=== PATIENT | female | born 1985 | race Caucasian/White ===

== ENCOUNTER 2016-10-06 06:27 | Inpatient (IN) | payer MEDICAID ==
[2016-10-06] MEDS ORDERED: IOPAMIDOL 300 (61%) 150 ML VIAL IV ONE (06:28)
[2016-10-06] MEDS ORDERED: LACTATED RINGERS 2,000 ML ONE ×2 (06:59→10:42)
[2016-10-06] MEDS ORDERED: HALOPERIDOL LACTATE 5 MG/1 ML AMP ONE (06:59)
[2016-10-06] MEDS ORDERED: DIAZEPAM 5 MG/ML SYRINGE 2 ML ONE ×5 (07:18→10:42)
[2016-10-06 07:22] LABS: BASO % 0.2 % (0.2-1.0); HEMATOCRIT 50.1 % (37.0-47.0); HEMOGLOBIN 15.9 gm/l (12.0-16.0); IMM NEUT # 0.1 K/mm3 (0-0.2); IMM NEUT% 0.8 % (0-1); LYMPH # 0.3 (1.0-4.8); LYMPH % 1.8 % (15-45); MEAN CELL VOLUME 109.9 fl (81.0-99.0); MEAN CORPUSCULAR HEMOGLOBIN 34.9 pg (27.0-31.0); MEAN CORPUSCULAR HGB CONC 31.7 g/dl (33.0-37.0); MEAN PLATELET VOLUME 9.8 fl (7.4-10.4); MONO # 0.7 (0.0-0.8); MONO % 3.9 % (4-12); NEUT % 93.3 % (43-75); PLATELET COUNT 242 K/mm3 (130-400); RED CELL DISTRIBUTION WIDTH 12.5 % (11.5-14.5)
[2016-10-06] MEDS ORDERED: MAGNESIUM SULFATE 1 G/100 ML 200 ML IV ONE (08:10)
[2016-10-06] MEDS ORDERED: THIAMINE HCL 100 MG/ML 2ML VIAL ONE (08:10)
[2016-10-06 08:13] LABS: BAND 4 % (0-10); BASOPHIL 0 % (0-1); EOSINOPHIL 0 % (1-3); LYMPHOCYTE 4 % (15-45); MONOCYTE 3 % (4-12); NEUTROPHILS 89 % (43-75); PLATELET ESTIMATE NORMAL (NORMAL); ROULEAU 1+; TOTAL CELLS COUNTED 100
[2016-10-06 08:20] LABS: ALB/GLOB RATIO 1.6 (>1.0); ALBUMIN 4.8 gm/dL (3.5-5.7); CALCIUM 8.5 mg/dL (8.6-10.3)
[2016-10-06 08:32] LABS: URINE BILIRUBIN NEGATIVE (NEGATIVE); URINE BLOOD 2+ (NEGATIVE); URINE GLUCOSE (UA) NEGATIVE (NEGATIVE); URINE LEUKOCYTE ESTERASE NEGATIVE (NEGATIVE); URINE NITRITE NEGATIVE (NEGATIVE); URINE PROTEIN 2+ (NEGATIVE); URINE UROBILINOGEN NORMAL (0-1 mg/dl)
[2016-10-06 08:33] LABS: URINE APPEARANCE CLEAR; URINE COLOR YELLOW
[2016-10-06 08:56] LABS: URINE AMORPHOUS SEDIMENT FEW; URINE BACTERIA RARE; URINE EPITHELIAL CELLS 0-2 /hpf; URINE WBC NEG /hpf
[2016-10-06 09:12] LABS: ARTERIAL BLOOD GAS HCO3 5.8 mmol/L (22.0-28.0); ARTERIAL BLOOD GAS PCO2 17.5 mmHg (35.0-45.0); ARTERIAL BLOOD GAS PO2 87.8 mmHg (80.0-90.0); ARTERIAL BLOOD GAS pH 7.139 (7.350-7.450)
--- NOTE | 2016-10-06 09:43 | CT ---
EXAMINATION: Contrast enhanced CT scan of the abdomen and pelvis. CLINICAL INDICATION: Abdominal pain, vomiting, elevated white count. COMPARISON: None TECHNIQUE: Oral contrast: None Following uneventful administration of 125 mL of Isovue 300, intravenously axial images were acquired from just above the domes of the diaphragm to the iliac crest. A CT scan of the pelvis was also obtained from the iliac crest to the initial tuberosities. Stacked axial, sagittal, and coronal images were reviewed. Findings: Abdomen CT: (Contrast-enhanced): The lung bases are clear and are without mass or pleural effusion. Liver exhibits diminished attenuation throughout. No focal lesion is identified. The gallbladder is within normal limits. There is no evidence of biliary obstruction. The spleen size and attenuation are within normal limits. The pancreas is normal in size and contours. No inflammatory stranding is identified. The pancreatic duct is unremarkable. The adrenals are unremarkable. The kidneys are without mass or hydronephrosis. No nephrolithiasis is identified. The abdominal aorta unremarkable. There is no retroperitoneal adenopathy identified. The stomach is unremarkable. The visualized segments of small and large bowel are within normal limits. The osseous structures exhibit no displaced fracture. No lytic or blastic lesions are identified. Pelvic CT: (Contrast -enhanced): The distal ureters and bladder are unremarkable. The uterus is unremarkable. There is a 1.6 cm right adnexal cyst. No adenopathy is identified. The distal abdominal aorta and iliac vessels are within normal limits. The visualized segments of small and large bowel are unremarkable. The appendix is unremarkable. No displaced fractures are identified. There are no gross osteolytic or blastic lesions. The overlying soft tissues are unremarkable. IMPRESSION: 1. No acute inflammatory or obstructive process is identified currently. 2. Fatty infiltration liver. 3. 1.6 cm right ovarian cyst. The findings were uploaded to the electronic medical record for review at approximately 9:44 AM 10/06/2016
[2016-10-06] MEDS ORDERED: ALBUTEROL SULFATE 5MG/ML INHALANT 20 ML BOT ONE (09:59)
[2016-10-06] MEDS ORDERED: FUROSEMIDE 40 MG/4 ML VIAL ONE (10:12)
[2016-10-06] MEDS ORDERED: DEXTROSE 50%-WATER 25 G ONE (10:12)
[2016-10-06] MEDS ORDERED: INSULIN REGULAR HUMAN (DOSE) 100 UNITS/1 ML ONE ×2 (10:12→10:14)
[2016-10-06] MEDS ORDERED: CALCIUM GLUCONATE 1,000 MG/10 ML VIAL ONE (10:17)
[2016-10-06] MEDS ORDERED: SODIUM CHLORIDE 0.9% 50 ML IV ONE (10:19)
--- NOTE | 2016-10-06 10:30 | RAD ---
EXAMINATION : CHEST-AP BEDSIDE HISTORY: Epigastric pain COMPARISONS: None FINDINGS: The cardiomediastinal silhouette is within normal limits. Lungs are clear. No gross effusion is identified. The osseous structures are within normal limits. IMPRESSION: Negative single view chest.
[2016-10-06 10:44] LABS: ACETONE,SERUM 2+ (NEGATIVE)
[2016-10-06 10:45] LABS: ACETAMINOPHEN < 10 ug/ml; SALICYLATE < 5 mg/dl (0-30)
[2016-10-06 10:49] LABS: AMPHETAMINES/METHAMPHETAMINES NEGATIVE (NEGATIVE); COCAINE NEGATIVE (NEGATIVE); MARIJUANA POSITIVE (NEGATIVE); METHADONE NEGATIVE (NEGATIVE); OPIATES NEGATIVE (NEGATIVE); TRICYCLIC ANTIDEPRESSANTS NEGATIVE (NEGATIVE)
--- NOTE | 2016-10-06 11:12 | US ---
EXAMINATION: Limited gallbladder ultrasound examination was performed. CLINICAL INDICATION: Right upper quadrant pain. COMPARISON: None FINDINGS: Gallbladder: 7.2 x 2.1 cm in size. Cholelithiasis:None Gallbladder wall thickness: 2 millimeters. Pericholecystic fluid: Absent Common bile duct: Not dilated and measures 3 millimeters. Sonographic Jurado's sign: None elicited IMPRESSION: Normal gallbladder ultrasound. The findings were uploaded to the electronic medical record for review at approximately 11:12 AM 10/06/2016
[2016-10-06 11:18] LABS: CREATININE,RANDOM URINE 51 mg/dL
[2016-10-06] MEDS ORDERED: MAGNESIUM HYDROXIDE 30 ML UDCUP PO PRN (11:26)
[2016-10-06] MEDS ORDERED: SODIUM CHLORIDE 0.9% 100 ML IV PRN (11:26)
[2016-10-06] MEDS ORDERED: MENTHOL/CETYLPYRD 1 EACH LOZENGE PO PRN (11:26)
[2016-10-06] MEDS ORDERED: BISACODYL 10 MG SUP PR PRN (11:26)
[2016-10-06] MEDS ORDERED: BLISTEX LIPSTICK 1 EACH TP PRN (11:26)
[2016-10-06] MEDS ORDERED: BISACODYL 5 MG TABLET.EC PO PRN (11:26)
[2016-10-06] MEDS ORDERED: MULTIVITAMINS 10 ML, FOLIC ACID 2 MG, MAGNESIUM SULFATE 1 G/2 ML 2 G, THIAMINE HCL 100 ... IV ONE ×5 (11:30)
[2016-10-06] MEDS ORDERED: SODIUM POLYSTYRENE SULFONATE 15 G/60 ML BOT PO SCH (11:45)
[2016-10-06] MEDS ORDERED: D5NS 1,000 ML IV SCH (12:02)
[2016-10-06] MEDS: LORAZEPAM 2 MG/ML 1ML SDV IV PRN (12:05)
[2016-10-06] MEDS ORDERED: INSULIN REGULAR HUMAN (DOSE) 100 UNITS in SODIUM CHLORIDE 0.9% 99 ML IV PRN (12:07)
[2016-10-06 12:08] VITALS: BMI 24.6
[2016-10-06] MEDS ORDERED: PUMP TUBING ONE ×3 (12:10→12:42)
[2016-10-06 12:45] LABS: VENOUS BLOOD GAS BASE EXCESS -17.6 mmol/L (-2.0-2.0); VENOUS BLOOD GAS HCO3 8.2 mmol/L (22.0-27.0)
[2016-10-06] MEDS: PANTOPRAZOLE 40 MG TABLET DR PO SCH (12:50)
[2016-10-06 13:05] LABS: CALCIUM 8.5 mg/dL (8.6-10.3)
[2016-10-06 13:19] LABS: INR 0.9; PROTHROMBIN TIME 9.5 SECONDS (9.3-11.4)
--- NOTE | 2016-10-06 15:40 | HP ---
KOBE KRAUSE : 1985 DATE OF ADMISSION: October 06, 2016 CHIEF COMPLAINT: Feeling poorly. HISTORY OF PRESENT ILLNESS: Patient is a 31-year-old female with a past medical history of alcohol abuse, pancreatitis and gastritis. Approximately four days ago she developed abdominal pain and nausea and loss of appetite. She did not feel like eating or drinking. She has not eaten or drank in the last four days. On last week, she drank her usual amount of alcohol and then has not had any alcohol since then. It is difficult to know if the cessation of alcohol and then she developed the abdominal pain or if the abdominal pain developed and then she stopped drinking. She says she drinks about a pint of liquor a day. She has had withdrawals but no seizures. Last night and this morning, her abdominal pain worsened and she started vomiting. It was greenish fluid stuff, no food, no blood. She went originally to the emergency room in [place], but the wait was too long, and then she presented to our facility. She has had a little bit of diarrhea with this and then she says there has been some blood in the diarrhea and some blood in her urine. There has been no fever. She has not had any sick contacts. There have been no new foods or other foods that she ingested. No one else has been sick around her. In the emergency department, she was found to have a potassium of 6.8 and a sodium 127, an anion gap of 29 and a carbon dioxide of 5 with a pH of 7.139. She was provided with insulin, D5 and albuterol and calcium carbonate to try to stabilize this hyperkalemia. She subsequently was very tremulous in the emergency room, presumed to be in acute alcohol withdrawals and was treated accordingly. Overall in the emergency department, she has received approximately 70 mg of diazepam, 60 mg of Lasix, 4 liters of lactated Ringers solution, magnesium sulfate, thiamine, and magnesium and calcium to try to stabilize her condition. She is being admitted to the hospital for ongoing management of her metabolic acidosis and hyperkalemia. Patient denied any other ingestions like antifreeze, isopropyl alcohol or mouthwash. She denies any other drug use except for marijuana. Denies methamphetamine, cocaine or heroin. REVIEW OF SYSTEMS: GENERAL: No fevers, some chills. HEENT: No throat pain or ear pain. CARDIOVASCULAR: No chest pain or pressure. RESPIRATORY: She now has shortness of breath but no prior difficulty in breathing or cough. ABDOMEN: She has epigastric abdominal pain, vomiting, nausea, and decreased appetite for four days. Some diarrhea. GENITOURINARY: Blood in the urine but no burning or urgency with urination. MUSCULOSKELETAL: No muscle aches or pains. NEUROLOGIC: Tremulous. No lightheadedness or dizziness. No history of alcohol withdrawal seizures. PSYCHIATRIC: Alcohol abuse dependence and now detox. PAST MEDICAL HISTORY: Includes: 1. Gastritis. 2. Pancreatitis. 3. Seborrheic dermatosis. PAST SURGICAL HISTORY: Appendectomy. ALLERGIES: CODEINE. IT MAKES HER VIOLENTLY ILL WITH VOMITING. MEDICATIONS: Include: 1. Promethazine. 2. Protonix. FAMILY MEDICAL HISTORY: Unknown at this time. SOCIAL HISTORY: She lives with a significant other and has several roommates. She does work in a cafe. PHYSICAL EXAM: VITAL SIGNS: On presentation to the intensive care unit, temperature 101.2, heart rate of 143, blood pressure of 138/77, respiratory rate of 28, she is saturating 98% on room air. GENERAL: She is alert and oriented, conversant, good historian. Mild respiratory distress. HEENT: Normocephalic, atraumatic. No tenderness to palpation. Mucous membranes moist. Pupils are equal and round, slow to react. RESPIRATORY: Clear to auscultation bilaterally, no rhonci or wheezing. CARDIOVASCULAR: Regular, tachycardic. Positive S1 and S2. There is no peripheral edema. Peripheral pulses bilaterally radially and posterior tibial. ABDOMEN: Tender epigastric, no rebound, no guarding, soft. MUSCULOSKELETAL: She is moving all extremities without difficulty. NEUROLOGIC: She is alert and oriented. SKIN: She has erythematous patches on her glabella, chin and cheeks. LABORATORIES: White blood count is 17.1, hemoglobin of 15.9 with a hematocrit of 50.1, a platelet count of 242. PT 9.5 and INR is 0.9. PCO2 of 17.5, PO2 of 87.8, ABG pH 7.139, ABG bicarbonate of 5.8, a lactate of 1.3. Repeat VBG four hours later was a pH of 7.21 and O2 saturation of 93.9, a PCO2 of 20.8, and PO2 of 62.8 with a bicarbonate of 8.2. Chemistry analysis, sodium 127, potassium 6.8, chloride 100, carbon dioxide of 5 with an anion gap of 29, glucose 153, calcium 8.5, AST 715, ALT 212, alkaline phosphatase 123, lipase 429. Repeat chemistry panel four hours later showed a sodium of 129, potassium of 3.7, carbon dioxide of 10 and an anion gap of 23. Urinalysis was obtained. It was yellow and clear with 2+ protein, 3+ ketones, 2+ blood, no leukocyte esterase or nitrites, 3 to 5 red blood cells. Toxicology, salicylates less than 5, acetaminophen less than 10, positive for marijuana, 2+ acetone. Influenza A and B were negative. DIAGNOSTIC IMAGIN. Chest x-ray was obtained and was interpreted as negative chest x-ray. 2. Ultrasound was obtained of the gallbladder. It showed a normal gallbladder. 3. Abdomen and pelvis CT was obtained and it was interpreted as no acute inflammatory or obstructive process identified. Fatty infiltrate of the liver and a 1.6 cm right ovarian cyst. ELECTROCARDIOGRAM: Electrocardiogram obtained in the emergency department showed a sinus tachycardia with a rate of 119 beats per minute. No axis deviation. TX interval 121 ms, QRS duration 109 ms, QTc of 353 ms. There are no acute ST segment elevations or depressions. There are no diffusely acute hyperacute T waves. ASSESSMENT: This is a 31-year-old female with a history of chronic alcohol abuse, one prior hospitalization that has been found from [place] for emergent ETOH withdrawals last October. Patient presenting with abdominal pain, nausea and vomiting with a profound metabolic acidosis and hyperkalemia. PLAN: 1. Hyperkalemia presumed from poor oral intake and vomiting although level seems high for her symptoms. She has been treated with insulin, glucose, calcium gluconate and albuterol in the emergency department with slight improvement in her potassium. I have put her on an insulin drip with D5 normal saline. She also received 60 mg of IV Lasix in the emergency department. I have started her on insulin drip with D5 and ordered Kayexalate with close monitoring on repeat electrolytes status. Her potassium has come down to 3.7. We have since stopped the insulin and D5 and put her on normal saline. We will monitor closely. 2. Metabolic anion gap acidosis without a lactic acid elevation. Slow improvement. Again unsure etiology with her profound acidotic pH. Slow improvement, continue IV fluids and close monitoring. 3. Alcohol withdrawal. She has received 80 mg of diazepam in the emergency department. She still is tremulous and received Ativan. We will follow CISD protocol and treat as necessary for symptoms. Seizure precautions and close monitoring due to her other medical comorbidities. 4. Dehydration with ketones and hemoconcentrated plasma. She is receiving copious IV fluids, and we will monitor. 5. Transaminase elevations secondary to chronic alcohol abuse and fatty liver infiltrate. We will monitor for improvement. 6. Leukocytosis reactive to ongoing processes. We will monitor. 7. Gastritis. We are treating symptomatically with Protonix.
[2016-10-06 16:23] LABS: VENOUS BLOOD GAS HCO3 14.4 mmol/L (22.0-27.0)
[2016-10-06] MEDS: SODIUM CHLORIDE 0.9% 1,000 ML IV SCH ×2 (16:55→21:14)
[2016-10-06 17:23] LABS: CALCIUM 7.9 mg/dL (8.6-10.3)
[2016-10-06] MEDS: ACETAMINOPHEN 325 MG TABLET PO PRN (17:49)
[2016-10-06] MEDS: DOCUSATE SODIUM 100 MG CAPSULE PO SCH (21:14)
[2016-10-06] MEDS ORDERED: KETOROLAC TROMETHAMINE 15 MG/ML VIAL ONE (21:22)
[2016-10-06] MEDS: KETOROLAC TROMETHAMINE 15 MG/ML VIAL IV ONE (21:27)
[2016-10-07 00:23] LABS: CALCIUM 9.2 mg/dL (8.6-10.3)
[2016-10-07] MEDS: SODIUM CHLORIDE 0.9% 1,000 ML IV SCH ×5 (01:02→17:36)
[2016-10-07 06:22] LABS: ABSOLUTE NEUTROPHIL COUNT 8.8 K/mm3 (1.8-7.7); BASO % 0.1 % (0.2-1.0); EOS # 0.1 (0.0-0.5); EOS % 0.6 % (0.9-2.9); HEMATOCRIT 33.5 % (37.0-47.0); HEMOGLOBIN 11.2 gm/l (12.0-16.0); IMM NEUT% 0.4 % (0-1); LYMPH # 1.1 (1.0-4.8); LYMPH % 10.4 % (15-45); MEAN CORPUSCULAR HEMOGLOBIN 35.1 pg (27.0-31.0); MEAN CORPUSCULAR HGB CONC 33.4 g/dl (33.0-37.0); MONO # 0.4 (0.0-0.8); MONO % 4.2 % (4-12); NEUT % 84.3 % (43-75); PLATELET COUNT 125 K/mm3 (130-400); RED CELL DISTRIBUTION WIDTH 12.6 % (11.5-14.5)
[2016-10-07 06:35] LABS: ALB/GLOB RATIO 1.3 (>1.0); ALBUMIN 3.3 gm/dL (3.5-5.7); CALCIUM 7.8 mg/dL (8.6-10.3); MAGNESIUM 2.2 mg/dL (1.9-2.7)
[2016-10-07] MEDS ORDERED: KETOROLAC TROMETHAMINE 15 MG/ML VIAL ONE (06:57)
[2016-10-07] MEDS: ACETAMINOPHEN 325 MG TABLET PO PRN (07:01)
[2016-10-07] MEDS ORDERED: KETOROLAC TROMETHAMINE 15 MG/ML VIAL IV ONE (07:02)
[2016-10-07] MEDS: KETOROLAC TROMETHAMINE 15 MG/ML VIAL IV ONE (07:03)
--- NOTE | 2016-10-07 07:17 | PDOC43 ---
- Subjective Chief Complaint: abdominal pain, vomiting Patient awake feeling improved. Headache has resolved, still with abdominal pin , no longer nauseous. Denies shortness of breath, chest pain Subjective: Reports Pain Tolerable, Reports Urinating Without Difficulty, Reports Abdominal Pain, Denies Tolerating Diet Well, Denies Adequate Oral Intake , Denies Shortness of Breath, Denies Cough, Denies Chest Pain, Denies Nausea, Denies Vomiting, Denies Fever - Objective Vital Signs Temperature 98.7 F 10/07/16 04:00 Pulse Rate 100 10/07/16 05:57 Respiratory Rate 15 10/07/16 05:57 Blood Pressure 144/89 10/07/16 05:57 O2 Saturation by Pulse Oximetry 96 10/07/16 05:57 Oxygen Delivery Method Room Air Oxygen Flow Rate 0 Intake and Output 10/05/16 10/06/16 10/07/16 23:59 23:59 23:59 Intake Total 5071 3317 Output Total 3850 Balance 1221 3317 General: Alert, Oriented x3, Cooperative, No Acute Distress HEENT: Atraumatic, PERRLA, EOMI, Mucous membr. moist/pink Lungs: Clear to Auscultation Bilaterally, Normal Air Movement, Other (shallow due to effort, no crackle or wheeze) Cardiovascular: Regular Rate and Rhythm, Normal S1 Abdomen: Soft, Tenderness, Mild Distention, Other (tender epigastric), No Rigid , No Rebounding Extremities: No Cyanosis, No Edema, No Tenderness Neurological: Normal Speech Psych/Mental Status: Normal Mood Laboratory 10/07/16 05:30 10/07/16 05:30 10/07/16 10/06/16 10/06/16 05:30 23:54 16:15 RBC 3.19 L MCV 105.0 H MCH 35.1 H VBG pH VBG O2 Saturation 96.3 H VBG Base Excess -9.0 L Mixed VBG pCO2 25.1 L Mixed VBG pO2 72.5 H Mixed VBG HCO3 14.4 L Anion Gap 6 L BUN 4 L 5 L 6 L Estimated GFR 145 H 117 H Calcium 7.8 L 7.9 L AST 212 H ALT 102 H Total Protein 5.9 L Albumin 3.3 L 10/06/16 10/06/16 14:00 12:30 RBC MCV MCH VBG pH 7.211 L VBG O2 Saturation 93.3 H VBG Base Excess -17.6 L Mixed VBG pCO2 20.8 L Mixed VBG pO2 62.1 H Mixed VBG HCO3 8.2 L Anion Gap 17 H 23 H BUN Estimated GFR Calcium 8.0 L 8.5 L AST ALT Total Protein Albumin Current Medications: Current meds reviewed in EMR. - Problems: Assessment/Plan (1) Metabolic acidosis Status: Acute Assessment/Plan: AG metabolic acidosis with initial pH of 7.139 rebound to 7.376 with copious IVF hydration. Unsure cause but she had been vomiting and in acute alcohol withdrawals upon presentation to ED. No PO intake for prior 3-4 days. Current AG 11 from high of 29 Resolved (2) Hyperkalemia Status: Acute Assessment/Plan: Unknown cause as does not take supplements, anti-hypertensives or other medications that may contribute to elevation, very little to no PO intake 3-4 days prior to admission. Some vomiting on day of admission. Accompanied with AG metabolic acidosis. Received IV glucose, insulin, calcium gluconate and albuterol treatment in ED. Copious IVF hydration and dose of kayexalate. Initial potassium of 6.8 now 3.2 and will replace as kayexalate without bowel movement yet Resolved (3) Hyponatremia Status: Acute Assessment/Plan: Initial sodium of 129, low from vomiting, no O intake. Rebound to 138 with IVF (4) Elevated transaminase level Status: Acute Assessment/Plan: With abdominal pain and vomiting, lipase elevated indicating possible pancreatitis. Patient with known alcohol dependence and abuse. Levels improved overnight. Imaging with fatty liver, no cholethiasis or cholecystitis. AST 715-->212 ALT 212-->102 Alk Phos 123-->75 (5) Leukocytosis Status: Acute Assessment/Plan: Resolved, reactive to medical condition Initial WBC 17.1, now 10.5 (6) Dehydration Status: Acute Assessment/Plan: with hemoconcentration, Hgb of 15 and HCT over 50. Improving with IVF. (7) Anemia Qualifiers: Anemia type: other cause Other causes of anemia: other cause, not classified Qualifier Code: (D64.89) Other specified anemias Status: Acute Assessment/Plan: due to dilutional effects, monitor. She may have a nutritional iron deficiency anemia (8) Abdominal pain Qualifiers: Abdominal location: epigastric Qualifier Code: (R10.13) Epigastric pain Status: Acute Assessment/Plan: Patient with abdominal pain, a component that is chronic, with acute vomiting and elevated lipase, fatty liver and gastritis. 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 Last drink presenting in withdrawal Received 80 mg of diazepam in ED, ativan per CIWA scale and only received 2 mg past 24 hours. VTE Prophylaxis: SCD's, ambulation
[2016-10-07] MEDS ORDERED: POTASSIUM CHLORIDE 40 MEQ in SODIUM CHLORIDE 0.9% 180 ML IV ONE (08:00)
[2016-10-07] MEDS: FOLIC ACID 1 MG TABLET PO SCH (08:35)
[2016-10-07] MEDS: DOCUSATE SODIUM 100 MG CAPSULE PO SCH ×2 (08:35→21:35)
[2016-10-07] MEDS: PANTOPRAZOLE 40 MG TABLET DR PO SCH (08:35)
[2016-10-07] MEDS: MULTIVIT W/ MINERALS 1 TAB TABLET PO SCH (08:35)
[2016-10-07] MEDS: THIAMINE HCL 100 MG TABLET PO SCH (08:35)
[2016-10-07] MEDS: HYDROCODONE/ACETAMINOPHEN 5/325MG TABLET PO PRN ×3 (12:03→22:13)
[2016-10-07] MEDS: LORAZEPAM 2 MG/ML 1ML SDV IV PRN ×2 (12:37→22:14)
[2016-10-07] MEDS: ONDANSETRON 4 MG/2ML 2 ML VIAL IV PRN (22:14)
[2016-10-08 06:22] LABS: HEMATOCRIT 34.8 % (37.0-47.0); HEMOGLOBIN 11.9 gm/l (12.0-16.0); MEAN CELL VOLUME 101.8 fl (81.0-99.0); MEAN CORPUSCULAR HEMOGLOBIN 34.8 pg (27.0-31.0); MEAN CORPUSCULAR HGB CONC 34.2 g/dl (33.0-37.0); RED CELL DISTRIBUTION WIDTH 12.9 % (11.5-14.5)
[2016-10-08 07:24] LABS: ALB/GLOB RATIO 1.3 (>1.0); ALBUMIN 3.5 gm/dL (3.5-5.7); CALCIUM 8.4 mg/dL (8.6-10.3); MAGNESIUM 1.8 mg/dL (1.9-2.7)
[2016-10-08 08:01] VITALS: BP 139/101
[2016-10-08] MEDS: FOLIC ACID 1 MG TABLET PO SCH (08:03)
[2016-10-08] MEDS: THIAMINE HCL 100 MG TABLET PO SCH (08:03)
[2016-10-08] MEDS: MULTIVIT W/ MINERALS 1 TAB TABLET PO SCH (08:03)
[2016-10-08] MEDS: PANTOPRAZOLE 40 MG TABLET DR PO SCH (08:03)
[2016-10-08] MEDS: DOCUSATE SODIUM 100 MG CAPSULE PO SCH (08:04)
[2016-10-08] MEDS: Magnesium Oxide 400 MG TABLET PO SCH ×2 (08:20→11:52)
[2016-10-08] MEDS: POTASSIUM CHLORIDE 20 MEQ TAB.PRT.SR PO SCH ×3 (08:21→11:52)
[2016-10-08] MEDS: ONDANSETRON 4 MG/2ML 2 ML VIAL IV PRN (08:21)
[2016-10-08] MEDS: LORAZEPAM 2 MG/ML 1ML SDV IV PRN (08:30)
[2016-10-08] MEDS ORDERED: MAGNESIUM SULFATE 2 G/50 ML 2 G in Premix (Water) 50 ml 1 EACH IV ONE (09:00)
--- NOTE | 2016-10-08 12:09 | DS ---
Jane Sue [id number] DATE OF ADMISSION: October 06, 2016 DATE OF DISCHARGE: October 07, 2016 DISCHARGE DIAGNOSES: 1. Severe metabolic acidosis suspect due to volume depletion as well as ketoacidosis from poor oral intake and possible acute malnutrition. 2. Hyperkalemia on admission with a potassium level up to 6.8 followed by hypokalemia after treatment. 3. She also had some hypomagnesemia likely due to IV fluids. 4. She had acute alcohol withdraw with some agitation. 5. She had acute alcoholic liver injury and suspected mild pancreatitis due to alcohol abuse. TO SUMMARIZE THE ADMISSION AND HOSPITAL COURSE: The patient is a 31-year-old female with a history of alcohol abuse, pancreatitis, and gastritis who presented with a four day history of abdominal pain, nausea, and loss of appetite. She did not eat or drink anything for that time frame, but drank her usual amount of alcohol up until last . She became nauseous and had worsening epigastric pain and vomiting and presented with severe ketoacidosis and arterial pH of 7.14. Anion gap was elevated at 29 with a serum bicarb of 5. BUN was 11 and creatinine of 1.0. Initial sodium was 127. Initial potassium was 6.8. Total bilirubin was normal at 1.0. AST was elevated at 715 with a n ALT of 212. Lipase was mildly elevated at 429. Blood gas showed the marked metabolic acidosis mentioned above. She was admitted to the intensive care unit. She was aggressively hydrated. She was given Kayexalate as well as an insulin infusion to help reduce her potassium which rapidly responded such that her potassium dropped to normal later that day and was actually low the following day. On admission she was markedly tachycardic with heart rates up to 140's, but the next 24 hours this had normalized. She had some agitation and responded to benzodiazepines, but did not develop full blown delirium tremens. She received alcohol cessation counseling during her stay. She has some mild ongoing epigastric pain felt to be due to gastritis and mild pancreatitis, but did have imaging studies of her abdomen and pelvis including a CT which did not show any inflammatory process identified. She also had a normal gallbladder ultrasound. By October 08 she was felt to be medically stable. PHYSICAL EXAMINATION: VITAL SIGNS: Temperature was 97.3, pulse 78, blood pressure 139/101, respirations 15, oxygen saturation is 100% on room air. Body mass index 25, weight is 68.1 kg. GENERAL: This is a well-developed, well-nourished female in no acute distress. HEENT: Unremarkable. NECK: Supple without lymphadenopathy or thyromegaly. LUNGS: Clear to auscultation bilaterally. CARDIOVASCULAR: Reveals a regular rate and rhythm without a murmur. ABDOMEN: Soft, nontender, nondistended with positive bowel sounds. She has some mild epigastric discomfort. DISPOSITION: Home. DISCHARGE CONDITION: Good. FOLLOW UP: Is to be arranged by the patient with Ap and she will need to seek out resources for her alcohol abuse and was given number of alcohol treatment programs. DISCHARGE MEDICATIONS: 1. Promethazine 25 mg up to four times daily as needed for nausea. 2. Protonix 20 mg twice daily, 60 pills and no refills. Prior to discharge the patient was tolerating a regular diet without any nausea or vomiting. JOB: [id number] CC: Ap
== END 2016-10-08 12:15 | disposition home or self-care (01) | DRG 641 ==
LOC: ED 06:27 → ICU 10:53
PROVIDERS: ADMIT Family Medicine; ATTEND Family Medicine
DX: E87.2 Acidosis (principal); F10.231 Alcohol dependence with withdrawal delirium; K76.0 Fatty (change of) liver, not elsewhere classified; N83.201 Unspecified ovarian cyst, right side; E87.5 Hyperkalemia; E86.0 Dehydration; R74.0 Nonspecific elevation of levels of transaminase and lactic acid dehydrogenase [LDH]; K29.70 Gastritis, unspecified, without bleeding